=== PATIENT | male | born 1960 | race Caucasian/White ===

== ENCOUNTER 2023-09-27 07:07 | Inpatient (IN) | payer OTHER ==
[2023-09-27 07:54] LABS: BASOPHILS PERCENT AUTO 0.9 % (0.0-1.0); EOSINOPHILS ABSOLUTE AUTO 0.1 K/mm3 (0.0-0.4); EOSINOPHILS PERCENT AUTO 1.4 % (0.0-6.0); HEMATOCRIT 32.8 % (42.0-52.0); HEMOGLOBIN 11.1 gm/dl (14.0-18.0); IMMATURE GRAN ABSOLUTE AUTO 0.02 K/mm3 (0.00-0.05); IMMATURE GRAN PERCENT AUTO 0.5 % (0.0-0.4); LYMPHOCYTES ABSOLUTE AUTO 0.9 K/mm3 (1.0-4.8); LYMPHOCYTES PERCENT AUTO 22.3 % (24.0-44.0); MEAN CORPUSCULAR HEMOGLOBIN 32.4 pg (28.0-32.0); MEAN CORPUSCULAR HGB CONC 33.8 g/dl (32.0-36.0); MEAN CORPUSCULAR VOLUME 95.6 fl (83.0-99.0); MEAN PLATELET VOLUME 8.6 fl (9.4-12.4); MONOCYTES ABSOLUTE AUTO 0.5 K/mm3 (0.0-0.8); MONOCYTES PERCENT AUTO 12.1 % (0.0-8.0); NEUTROPHILS ABSOLUTE AUTO 2.7 K/mm3 (1.8-7.7); NEUTROPHILS PERCENT AUTO 62.8 % (41.0-71.0); PLATELET COUNT,PLT 120 K/mm3 (150-400); RED BLOOD CELL COUNT 3.43 M/mm3 (4.52-5.90); WHITE BLOOD CELL COUNT,WBC 4.22 K/mm3 (3.9-11.3)
[2023-09-27 08:04] LABS: ALBUMIN 3.6 g/dl (3.4-5.0); ANION GAP 9.2 (5-15); BILIRUBIN TOTAL 1.2 mg/dL (0.2-1.0); BUN/CREATININE RATIO 7.9 (14-18); CALCIUM 9.2 mg/dL (8.5-10.1); CREATININE 1.4 mg/dL (0.7-1.3); EST CRCL DRUG DOSING (CG) 51.15 mL/min; PHOSPHORUS 2.5 mg/dL (2.6-4.7); PROTEIN TOTAL,TP 7.2 g/dl (6.4-8.2)
[2023-09-27 08:05] LABS: INR 1.07; PROTHROMBIN TIME 11.4 SECONDS (9.7-12.0)
[2023-09-27 08:21] LABS: POTASSIUM,K 2.2 mEq/L (3.5-5.1)
[2023-09-27] MEDS: Sodium Chloride 0.9% 10 ML Syringe FLUSH PRN (09:17)
[2023-09-27] MEDS: Sodium Chloride 0.9% 100 ML IV SCH (09:17)
[2023-09-27] MEDS: Iopamidol 755 Mg/ML 100 ML Bottle IVPUSH ONE (09:17)
[2023-09-27] MEDS: Potassium Chloride 20 MEQ Tab.ER PO ONE (09:47)
[2023-09-27] MEDS: Potassium Chloride 10 MEQ in Premix Bag 1 BAG IV ONE (09:48)
[2023-09-27] MEDS: Potassium Chloride 10 MEQ in Premix Bag 1 BAG IV SCH ×2 (11:07→15:45)
[2023-09-27] MEDS ORDERED: Potassium Phosphates 30 MMOLE in Sodium Chloride 0.9% 500 ML IV SCH (13:30)
[2023-09-27] MEDS: Potassium Chloride 100 ML ONE (16:04)
[2023-09-27] MEDS: Potassium Phosphates 30 MMOLE in Sodium Chloride 0.9% 500 ML IV SCH (18:49)
[2023-09-27] MEDS: Temazepam 7.5 MG Cap PO PRN (20:47)
[2023-09-27] MEDS: Potassium Chloride 20 MEQ Tab.ER PO SCH (20:47)
[2023-09-27] MEDS: Acetaminophen 325 MG Tab PO PRN (20:48)
[2023-09-28 07:01] LABS: HEMATOCRIT 32.8 % (42.0-52.0); HEMOGLOBIN 11.1 gm/dl (14.0-18.0); MEAN CORPUSCULAR HEMOGLOBIN 32.5 pg (28.0-32.0); MEAN CORPUSCULAR HGB CONC 33.8 g/dl (32.0-36.0); MEAN CORPUSCULAR VOLUME 95.9 fl (83.0-99.0); MEAN PLATELET VOLUME 8.7 fl (9.4-12.4); PLATELET COUNT,PLT 129 K/mm3 (150-400); RED BLOOD CELL COUNT 3.42 M/mm3 (4.52-5.90); WHITE BLOOD CELL COUNT,WBC 3.86 K/mm3 (3.9-11.3)
[2023-09-28 07:26] LABS: A/G RATIO 0.9 (1-2); ALBUMIN 3.4 g/dl (3.4-5.0); ANION GAP 10.9 (5-15); BILIRUBIN TOTAL 0.7 mg/dL (0.2-1.0); BUN/CREATININE RATIO 7.7 (14-18); CREATININE 1.3 mg/dL (0.7-1.3); EST CRCL DRUG DOSING (CG) 55.08 mL/min; PHOSPHORUS 3.2 mg/dL (2.6-4.7); POTASSIUM,K 2.9 mEq/L (3.5-5.1); PROTEIN TOTAL,TP 7.2 g/dl (6.4-8.2)
[2023-09-28] MEDS: Potassium Chloride 10 MEQ in Premix Bag 1 BAG IV SCH (07:53)
[2023-09-28] MEDS: Rosuvastatin 10 MG Tab PO SCH (08:49)
[2023-09-28] MEDS: Carvedilol 12.5 MG Tab PO SCH (08:51)
[2023-09-28 12:29] VITALS: BP 113/86; PULSE 68
== END 2023-09-28 12:06 | disposition home or self-care (01) | DRG 641 ==
LOC: JD.ED 07:07 → JD.MS 13:12
PROVIDERS: ADMIT Internal Medicine; ATTEND Internal Medicine
DX: E87.6 Hypokalemia (principal); D61.818 Other pancytopenia; D64.9 Anemia, unspecified; I10 Essential (primary) hypertension; E78.5 Hyperlipidemia, unspecified; G47.30 Sleep apnea, unspecified; E83.39 Other disorders of phosphorus metabolism; M19.90 Unspecified osteoarthritis, unspecified site; F17.210 Nicotine dependence, cigarettes, uncomplicated; Z96.642 Presence of left artificial hip joint; Z79.899 Other long term (current) drug therapy
CPT/HCPCS: 36415; 71275; 71275-26; 80053; 82728; 83540; 83735; 84100; 84132; 85025; 85027; 85379; 85610; 86850; 86900; 86901; 93005; 93010; 96374; 99285; 99285-25; A9270-GY; J3480; J3490; J7040; Q9967

== ENCOUNTER → 2023-09-27 | Day surgery (SDC) | payer OTHER ==
[~2023-09-27] MED LIST: Acetaminophen 325 MG Tab PO SCH; Bupivacaine 0.5% 30 ML SDV ONE; Morphine 8 MG, EPINEPHrine 0.3 MG, Cefuroxime 750 MG, Ketorolac 30 MG, Sodium Chloride ... PRN; Pregabalin 25 MG Cap PO SCH; Sodium Chloride 0.9% 10 ML Syringe FLUSH PRN; Sodium Chloride 0.9% 10 ML Syringe FLUSH SCH; Tranexamic Acid 1,000 MG/10 ML Vial ONE; Vancomycin 1 GM SDV ONE; oxyCODONE ER 10 MG TAB.ER PO SCH
[2023-09-27 06:32] LABS: BASOPHILS ABSOLUTE AUTO 0.1 K/mm3 (0.0-0.2); BASOPHILS PERCENT AUTO 1.3 % (0.0-1.0); EOSINOPHILS ABSOLUTE AUTO 0.1 K/mm3 (0.0-0.4); EOSINOPHILS PERCENT AUTO 1.8 % (0.0-6.0); HEMATOCRIT 30.7 % (42.0-52.0); HEMOGLOBIN 10.8 gm/dl (14.0-18.0); IMMATURE GRAN ABSOLUTE AUTO 0.02 K/mm3 (0.00-0.05); IMMATURE GRAN PERCENT AUTO 0.5 % (0.0-0.4); LYMPHOCYTES PERCENT AUTO 25.3 % (24.0-44.0); MEAN CORPUSCULAR HEMOGLOBIN 32.8 pg (28.0-32.0); MEAN CORPUSCULAR HGB CONC 35.2 g/dl (32.0-36.0); MEAN CORPUSCULAR VOLUME 93.3 fl (83.0-99.0); MEAN PLATELET VOLUME 8.2 fl (9.4-12.4); MONOCYTES ABSOLUTE AUTO 0.5 K/mm3 (0.0-0.8); MONOCYTES PERCENT AUTO 11.9 % (0.0-8.0); NEUTROPHILS ABSOLUTE AUTO 2.3 K/mm3 (1.8-7.7); NEUTROPHILS PERCENT AUTO 59.2 % (41.0-71.0); PLATELET COUNT,PLT 108 K/mm3 (150-400); RED BLOOD CELL COUNT 3.29 M/mm3 (4.52-5.90); WHITE BLOOD CELL COUNT,WBC 3.95 K/mm3 (3.9-11.3)
[2023-09-27 06:38] VITALS: BP 114/68; PULSE 62
[2023-09-27] MEDS: Lactated Ringers 1,000 ML IV SCH (06:44)
[2023-09-27 06:54] LABS: ALBUMIN 3.5 g/dl (3.4-5.0); ANION GAP 10.2 (5-15); BILIRUBIN TOTAL 1.1 mg/dL (0.2-1.0); BUN/CREATININE RATIO 8.6 (14-18); CREATININE 1.4 mg/dL (0.7-1.3); EST CRCL DRUG DOSING (CG) 51.15 mL/min
[2023-09-27 06:57] LABS: POTASSIUM,K 2.2 mEq/L (3.5-5.1)
== END | disposition home or self-care (01) ==
LOC: JD.SDS 05:55
PROVIDERS: ATTEND Orthopaedic Surgery
DX: M16.12 Unilateral primary osteoarthritis, left hip (principal); Z53.8 Procedure and treatment not carried out for other reasons
CPT/HCPCS: 36415; 80053; 85025; J7120; J0665; J3370; J3490

== ENCOUNTER 2024-03-30 09:01 | Day surgery (SDC) | payer OTHER ==
[2024-03-30] MEDS: Polymyxin B/Trimethoprim 10 ML Bottle EYERT SCH (10:13)
[2024-03-30] MEDS: Phenylephrine 2.5% Ophth Soln 2 ML Bot EYERT SCH (10:23)
[2024-03-30] MEDS: Tropicamide 1% Ophth Soln 3 ML Bottle EYERT SCH (10:28)
[2024-03-30] MEDS: Brimonidine 0.2% Ophth Soln 5 ML Bottle EYERT SCH (10:58)
[2024-03-30] MEDS: Tetracaine HCl/PF 0.5% 4 ML Bottle EYEBOTH SCH (11:34)
[2024-03-30] MEDS: Lidocaine 1% PF 2 ML SDV INJECT SCH (11:54)
[2024-03-30] MEDS: Cefuroxime 10 MG/ML SYRINGE EYERT SCH (12:05)
[2024-03-30] MEDS: Pilocarpine 4% Ophth Soln 15 ML Bot EYERT SCH (12:06)
[2024-03-30 15:58] VITALS: BP 188/100; PULSE 81
== END 2024-03-30 12:17 | disposition home or self-care (01) ==
LOC: JD.SDS 09:01
PROVIDERS: ATTEND Ophthalmology
DX: H25.813 Combined forms of age-related cataract, bilateral (principal); H21.81 Floppy iris syndrome; H21.41 Pupillary membranes, right eye; I10 Essential (primary) hypertension; E78.2 Mixed hyperlipidemia; H43.811 Vitreous degeneration, right eye; H16.223 Keratoconjunctivitis sicca, not specified as Sjogren's, bilateral; H11.153 Pinguecula, bilateral; H02.831 Dermatochalasis of right upper eyelid; H02.834 Dermatochalasis of left upper eyelid; H57.813 Brow ptosis, bilateral; Z79.899 Other long term (current) drug therapy
CPT/HCPCS: 66982; A9270; J0697; J3490; V2632

== ENCOUNTER 2024-04-27 10:22 | Day surgery (SDC) | payer OTHER ==
[~2024-04-27 10:22] MED LIST changes: -Acetaminophen 325 MG Tab PO SCH; -Bupivacaine 0.5% 30 ML SDV ONE; -Morphine 8 MG, EPINEPHrine 0.3 MG, Cefuroxime 750 MG, Ketorolac 30 MG, Sodium Chloride ... PRN; +Pilocarpine 4% Ophth Soln 15 ML Bot EYELF SCH; -Pregabalin 25 MG Cap PO SCH; -Sodium Chloride 0.9% 10 ML Syringe FLUSH PRN; -Sodium Chloride 0.9% 10 ML Syringe FLUSH SCH; -Tranexamic Acid 1,000 MG/10 ML Vial ONE; -Vancomycin 1 GM SDV ONE; -oxyCODONE ER 10 MG TAB.ER PO SCH
[2024-04-27] MEDS: Polymyxin B/Trimethoprim 10 ML Bottle EYELF SCH (11:30)
[2024-04-27] MEDS: Brimonidine 0.2% Ophth Soln 5 ML Bottle EYELF SCH (11:39)
[2024-04-27] MEDS: Phenylephrine 2.5% Ophth Soln 2 ML Bot EYELF SCH (11:47)
[2024-04-27] MEDS: Tropicamide 1% Ophth Soln 3 ML Bottle EYELF SCH (11:50)
[2024-04-27] MEDS: Tetracaine HCl/PF 0.5% 4 ML Bottle EYEBOTH SCH (12:40)
[2024-04-27] MEDS: Lidocaine 1% PF 2 ML SDV INJECT SCH (13:05)
[2024-04-27] MEDS: Cefuroxime 10 MG/ML SYRINGE EYELF SCH (13:15)
[2024-04-27 13:35] VITALS: BP 122/78; PULSE 84
== END 2024-04-27 13:27 | disposition home or self-care (01) ==
LOC: JD.SDS 10:22
PROVIDERS: ATTEND Ophthalmology
DX: H25.812 Combined forms of age-related cataract, left eye (principal); H52.31 Anisometropia; H16.103 Unspecified superficial keratitis, bilateral; H16.223 Keratoconjunctivitis sicca, not specified as Sjogren's, bilateral; H43.811 Vitreous degeneration, right eye; H02.831 Dermatochalasis of right upper eyelid; H02.834 Dermatochalasis of left upper eyelid; H57.813 Brow ptosis, bilateral; I10 Essential (primary) hypertension; E78.2 Mixed hyperlipidemia; Z79.899 Other long term (current) drug therapy
CPT/HCPCS: 66984; A9270; 00142; J3490; V2632